=== PATIENT | female | born 1960 | race Caucasian/White ===

== ENCOUNTER → 2016-11-01 | Outpatient (REF) ==
[2016-11-01 15:45] LABS: THYROID STIMULATING HORMONE 11.7 uIU/mL (0.465-4.680)
[2016-11-02 08:36] LABS: THYROXINE (T4)-TOTAL 4.6 ug/dL (5.5-11.0)
== END ==
LOC: ZLAB.WCH 14:56
PROVIDERS: Medical Genetics Clinical Genetics (M.D.)
DX: Z01.89 Encounter for other specified special examinations (principal)

== ENCOUNTER → 2018-09-19 | Outpatient (REF) | LOC: ZLAB.WCH 15:55 | DX: Z01.89 Encounter for other specified special examinations (principal) ==

== ENCOUNTER → 2018-11-17 | Outpatient (REF) | LOC: ZLAB.WCH 15:55 | DX: Z01.89 Encounter for other specified special examinations (principal) ==

== ENCOUNTER → 2023-11-22 | Outpatient (CLI) | payer OTHER ==
[~2023-11-22] MED LIST: Albuterol 0.083% Neb Soln 2.5 MG/3 ML UD IH ONE
== END ==
LOC: COL.RAD 14:28
DX: J43.9 Emphysema, unspecified (principal); J44.9 Chronic obstructive pulmonary disease, unspecified

== ENCOUNTER 2024-04-22 14:14 | Emergency (ER) | payer OTHER ==
[~2024-04-22] VITALS: Ht 162.6 cm; Wt 47.7 kg
[2024-04-22 14:32] VITALS: BP 201/85; TEMP 98.1
[2024-04-22] MEDS ORDERED: NORCO 325 MG-51 TAB PO (16:15)
[2024-04-22 16:24] VITALS: PULSE 77
== END 2024-04-22 16:24 | disposition home or self-care (01) ==
LOC: COL.ER 14:14
DX: S20.211A Contusion of right front wall of thorax, initial encounter (principal); F17.210 Nicotine dependence, cigarettes, uncomplicated; Z79.82 Long term (current) use of aspirin; X58.XXXA Exposure to other specified factors, initial encounter

== ENCOUNTER → 2024-05-18 | Outpatient (CLI) | payer OTHER, MEDICAID ==
[~2024-05-18] MED LIST changes: -Albuterol 0.083% Neb Soln 2.5 MG/3 ML UD IH ONE; +NORCO 325 MG-51 TAB PO
[2024-05-18 13:19] LABS: ALBUMIN 3.7 g/dL (3.4-4.8); BILIRUBIN,TOTAL 0.2 mg/dL (0.2-1.2); CALCIUM 9.6 mg/dL (8.4-10.2); CREATININE, serum 0.84 mg/dL (0.57-1.11); TOTAL PROTEIN 7.5 g/dl (6.2-8.1)
== END ==
LOC: COL.LAB 12:38
PROVIDERS: Nurse Practitioner Family
DX: E87.6 Hypokalemia (principal)

== ENCOUNTER → 2024-05-20 | Outpatient (CLI) | payer MEDICAID ==
[2024-05-20 16:48] LABS: ALBUMIN 3.8 g/dL (3.4-4.8); BILIRUBIN,TOTAL 0.2 mg/dL (0.2-1.2); CALCIUM 9.9 mg/dL (8.4-10.2); CREATININE, serum 0.91 mg/dL (0.57-1.11); TOTAL PROTEIN 8.1 g/dl (6.2-8.1)
[2024-05-20 16:55] LABS: POTASSIUM 2.9 mEq/L (3.5-4.5)
== END ==
LOC: COL.LAB 15:33
PROVIDERS: Nurse Practitioner Family
DX: E87.6 Hypokalemia (principal)